=== PATIENT | female | born 1945 | race Caucasian/White ===

== ENCOUNTER 2023-12-29 08:45 | Emergency (ER) | payer OTHER, SELFPAY ==
[2023-12-29 08:47] VITALS: BP 141/75
--- NOTE | 2023-12-29 09:09 | ED.GENMED ---
History of Present Illness
General
Chief Complaint: Post Operative Problem(s)
Source: patient
Exam Limitations: none
Time Seen by Provider: 12/29/23 09:06
Nursing documentation reviewed up to this point in time: agreed with
History of Present Illness
History of Present Illness:
78 yo female w no clinically significant pmhx presents one day post op right foot bunionectomy and straightening of toes right foot by Dr. Faye. She is here for bleeding through her dressings. Not on thinners. States pain is 'not bad.'
Past History
Past History
ED Past Medical History: Other (OA)
ED Past Surgical History: None, Cardiac (PFO surgery) and Orthopedic
Social History
Tobacco: Non-smoker
Alcohol: None
Drug: None
Living: with family
Family History
Family History: Negative Diabetes, Hypertension, Early CAD, Asthma or Cancer
Review of Systems
Review of Systems
Allergies reviewed?: Yes
All Other Systems: ROS reviewed and negative except as documented in HPI and ROS
Constitutional: Denies fever
Musculoskeletal: Reports other (bleeding through dressing right foot. Pins intact.)
Phy Exam
Physical Exam
Physical Exam:
PHYSICAL EXAMINATION:
General: no apparent distress, not acutely ill
Neuro: alert and oriented.
Psychiatric: well kept. interactive and cooperative
Musculoskeletal: Moves with ease
Skin: Warm, pink. Dressings removed right foot: 5 pins intact, sutures intact, minimal no active bleeding. Gelfoam applied to a small clot base of 2nd toe most likely site of bleeding. Vaseline gauze, sterile gauze and Kerlix
dressing, nae wrap applied (just like it was wrapped on arrival). Pt cast shoe replaced.
Course
Vital Signs
Initial and Last Documented VS:
Initial Vital Signs
Temp Pulse Resp BP Pulse Ox
98.3 F 81 18 141/75 98
12/29/23 08:47 12/29/23 08:47 12/29/23 08:47 12/29/23 08:47 12/29/23 08:47
Last Documented Vital Signs
Temp Pulse Resp BP Pulse Ox
98.3 F 81 18 141/75 98
12/29/23 08:47 12/29/23 08:47 12/29/23 08:47 12/29/23 08:47 12/29/23 08:47
MDM/Problems Addressed
Differential Diagnosis Includes:
Post op bleeding
MDM/Problems Addressed:
78 yo female w no clinically significant pmhx presents one day post op right foot bunionectomy and straightening of toes right foot by Dr. Faye. She is here for bleeding through her dressings. Not on thinners. States pain is 'not bad.'
Dressing removed, no significant bleeding, area cleansed w NSS, dressing reapplied. No further bleeding
*Critical Care Note
Total Time (30-74mins, 75-104mins- exclusive of procedures): Not Applicable
ED Attending Note
-
Portions of this chart may have been created with voice recognition software.� Occasional wrong word or��sound alike� substitutions may have occurred due to the inherent limitations of voice recognition software.
Discharge Plan
Departure
Patient Disposition: Home (Routine Discharge)
Date of Disposition: 12/29/23
Time of Disposition: 09:20
Patient with high blood pressure during this ER visit?: No
Condition: Good
Discharge Problem:
Post-op bleeding, Dressing change
Instructions: Wound Care (DC)
Prescriptions:
No Action
alendronate 70 MG tablet
70 mg PO WE
prasterone (dhea) 25 MG capsule
25 mg PO DAILY
cholecalciferol (vitamin D3) 2,000 UNITS tablet
5,000 units PO DAILY
multivitamin with folic acid [Tab-A-Sen] 1 TABLET tablet
1 tab PO DAILY
Lactobacillus acidophilus [Probiotic] 1 EACH capsule
1 ea PO DAILY
tocilizumab [Actemra] 162 MG/0.9 ML syringe
162 mg SQ WE Qty: 0 0RF
Rx Instructions:
Resume 2 weeks post-op per edger machine operator recs.
acetaminophen [Tylenol Arthritis] 650 MG tablet extended release
650 mg PO TID
Referrals:
Minh Faye MD [Active] - Keep scheduled appt
Activity Restrictions/Additional Instructions:
As we discussed, continue Dr. Cisse's instructions.
Interventions
Interventions:
*Risk Screen - Suicide Last Done: 12/29/23 08:47
*General Assessment Last Done: 12/29/23 08:47
*Neglect/Abuse Screening Last Done: 12/29/23 08:47
*ED COVID-19 Vaccine History Last Done: 12/29/23 08:47
*Nursing Disposition Last Done: 12/29/23 09:38
ED-Skin Assessment Last Done: 12/29/23 09:10
Discharge Date and Time
Discharge Date/Time: 12/29/23 09:39
Print Language: TURKISH
== END 2023-12-29 09:39 | disposition home or self-care (01) ==
LOC: EMR 08:45
PROVIDERS: EMERGENCY PHYSICIAN Student in an Organized Health Care Education/Training Program; FAMILY PHYSICIAN Family Medicine
DX: L76.22 Postprocedural hemorrhage of skin and subcutaneous tissue following other procedure (principal); Y83.8 Other surgical procedures as the cause of abnormal reaction of the patient, or of later complication, without mention of misadventure at the time of the procedure; Z48.01 Encounter for change or removal of surgical wound dressing
CPT/HCPCS: 99281

== ENCOUNTER 2024-12-30 00:38 | Emergency (ER) | payer OTHER, SELFPAY ==
[2024-12-30 00:45] VITALS: BP 174/102
--- NOTE | 2024-12-30 03:08 | ED.GENMED ---
History of Present Illness
General
Chief Complaint: Generalized Pain
Source: patient
Exam Limitations: none
Time Seen by Provider: 12/30/24 03:07
Nursing documentation reviewed up to this point in time: agreed with
History of Present Illness
History of Present Illness:
Note:
CHIEF COMPLAINT(S)
Diffuse muscle pain.
HISTORY OF PRESENT ILLNESS
The patient is a 78-year-old female with a history of rheumatoid arthritis, fibromyalgia, anemia, who presents with diffuse muscle pain. The pain is primarily in the muscles and joints, with the exception of the abdomen. This discomfort is
exacerbated which walking and any movement, which she describes as significantly intensifying the muscle discomfort. The patient has not experienced any fevers or vomiting. She has a known history of rheumatoid arthritis and reports that her
inflammation levels have generally been normal in recent evaluations. The current pain episode is not new but has worsened compared to prior occurrences. The patient has not been on biologic treatments or oral medications specifically for rheumatoid
arthritis. She has had past surgical interventions, including a joint replacement. 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
The patient has attempted to manage the pain with Tylenol, which has provided minimal relief. She has also tried ibuprofen. There is a concern about osteoporosis, and she has expressed caution with specific muscle relaxants due to side effects like
drowsiness. She is requesting Medrol dose back. She feels the pain 'all over' but today sees to be worse in left lower back and right shoulder. She denies saddle paresthesias, urinary incontinence.
PLAN
1. Initiate blood work to rule out rhabdomyolysis or other muscle breakdown conditions.
2. Start a course of Medrol (methylprednisolone) for anti-inflammatory effects.
3. Discuss the option of using a Toradol (ketorolac) injection as a potent anti-inflammatory measure.
4. Apply Lidocaine patches to the most painful areas, such as the left shoulder and right back area.
5. Consider initiating muscle relaxants if needed, with caution regarding potential side effects, particularly in the context of the patients age and sensitivity to medications.
6. Evaluate the effectiveness of current treatments and adjust the plan as necessary.
DIFFERENTIAL DIAGNOSIS
The Differential Diagnosis includes, in no particular order and is not limited to:
1. Rheumatoid arthritis exacerbation
2. Polymyalgia rheumatica
3. Fibromyalgia
4. Rhabdomyolysis
5. Spondyloarthritis
6. Osteoporosis-related pain
7. Muscle strain
8. Drug-induced myopathy
9. Chronic pain syndrome
10. Degenerative joint disease
PHYSICAL EXAM
General: Patient is well appearing and in no acute distress; non-toxic
Skin: Warm and dry, no rashes or lesions
Head: Normocephalic, atraumatic
Eyes: Sclera non-icteric. EOMs intact.
Cardiac: Regular rate
Peripheral Vascular: No lower extremity swelling or edema, no tenderness of the bilateral lower extremities
Pulm: Normal respiratory effort, no wheezes, rales, or rhonchi
Musculoskeletal: No midline spinal tenderness. Tenderness to palpation of the right posterior shoulder and left parathoracic region. No tenderness of the upper extremities. Normal, steady gait.
Neuro: CN II-XII intact, no focal neurologic deficits. 5/5 strength in bilateral upper and lower extremities.
Psychiatric: Appropriate mood and affect.
CHART REVIEW
reviewed chart from 12/29/23 patient seen for dressing change
reviewed discharge summary from 11/14/20 patient seen for total knee replacement
UPDATE
Patient notes minimal improvement with Toradol and lidocaine patches
Patient declined Valium
MDM/DISPOSITION
This is a 79 year-old female with a past medical history of rheumatoid arthritis and fibromyalgia who presents an emergency with concerns of diffuse spotty aches. She reports that this pain is typical of her rheumatoid arthritis pain and she falls
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 She has no fevers or chills. No red flag low back symptoms . She's been taking Tylenol at home without relief. She was given Tylenol , Toradol, and liking patches in the ER with minimal if any relief. Patient reports that she
cannot walk because of the severe pain however she was seen by nursing staff to be walking comfortably.
In review of her labs, she does have a leukocytosis which I think is reactive secondary to acute flair of her chronic inflammatory condition. Her anemia is stable. Her other bloodwork is unremarkable and her CK is not concerning. Suspect acute RA
flare. Patient that Medrol has worked well for her in the past. Will send for pharmacy . Discussed strict return precautions. Patient stable for outpatient follow up. Discussed potential l evaluation in the future as an outpatient by a pain
management doctor.
Past History
Past History
ED Past Medical History: Other (OA)
ED Past Surgical History: None, Cardiac (PFO surgery) and Orthopedic
Social History
Tobacco: Non-smoker
Alcohol: None
Drug: None
Living: with family
Family History
Family History: Negative Diabetes, Hypertension, Early CAD, Asthma or Cancer
Phy Exam
Physical Exam
Physical Exam:
see hpi
Course
Orders/Labs/Results
Orders:
Orders
12/30/24 03:21
Acetaminophen [Tylenol] 1,000 mg PO NOW STA
Ketorolac [Toradol] 15 mg IM NOW STA
Lidocaine [Lidocaine 4% Patch] 2 patch TOPICAL DAILY ONE
Apply Lidocaine patch(s) to:: left shoulder, right low back
12/30/24 03:34
CPK [Creatine Phosphokinase] Urgent
Complete Blood Count/With Diff Urgent
Comprehensive Metabolic Panel Urgent
12/30/24 04:29
Vital Signs- Treatment ONCE
Frequency: Once
Abnormal Lab Results
12/30/24
03:34
WBC 16.6 H 10^3/uL
(4.8-10.8)
Hgb 10.8 L g/dL
(12.0-16.0)
Hct 33.5 L %
(37.0-47.0)
MCV 68.4 L fL
(81.0-99.0)
MCH 22.0 L pg
(27.0-31.0)
MCHC 32.2 L g/dL
(33.0-37.0)
RDW 18.5 H %
(11.5-14.5)
MPV 10.6 H fL
(7.4-10.4)
Abs Immat Gran (auto) 0.1 H 10^3/uL
(0-0.05)
Absolute Neuts (auto) 15.7 H 10^3/uL
(1.4-6.5)
Absolute Lymphs (auto) 0.4 L 10^3/uL
(1.2-3.4)
Neutrophils % 94.6 H %
(42.2-75.2)
Lymphocytes % 2.3 L %
(20.5-51.1)
Chloride 110 H mmol/L
(98-107)
Creatine Kinase 25 L U/L
(30-135)
Total Protein 6.2 L g/dl
(6.3-8.2)
12/30/24 03:34
12/30/24 03:34
Vital Signs
Initial and Last Documented VS:
Initial Vital Signs
Temp Pulse Resp BP Pulse Ox
97.7 F 83 18 174/102 97
12/30/24 00:45 12/30/24 00:45 12/30/24 00:45 12/30/24 00:45 12/30/24 00:45
Last Documented Vital Signs
Temp Pulse Resp BP Pulse Ox
97.5 F 77 16 148/85 99
12/30/24 04:33 12/30/24 04:33 12/30/24 04:33 12/30/24 04:33 12/30/24 04:33
*Pulse Oximetry
SaO2: 97
Oxygen Mode of Delivery: Room air
Patient hypoxic: no
*Critical Care Note
Total Time (30-74mins, 75-104mins- exclusive of procedures): Not Applicable
ED Attending Note
-
Portions of this chart may have been created with voice recognition software.� Occasional wrong word or��sound alike� substitutions may have occurred due to the inherent limitations of voice recognition software.
Discharge Plan
Departure
Patient Disposition: Home (Routine Discharge)
Date of Disposition: 12/30/24
Time of Disposition: 04:57
Patient with high blood pressure during this ER visit?: Yes
Condition: Good
Discharge Problem:
Rheumatoid arthritis flare
Instructions: Rheumatoid arthritis, Fibromyalgia, BLOOD PRESSURE
Prescriptions:
New
methylprednisolone [Medrol (Jacoby)] 4 mg tablets,dose pack
See Rx Instructions .ROUTE .COMPLEX Qty: 21 0RF
Rx Instructions:
orally per package directions
oxycodone-acetaminophen [Percocet] 2.5-325 mg tablet
1 tab PO Q6H PRN (Reason: Pain) Qty: 6 0RF
No Action
alendronate 70 MG tablet
70 mg PO WE
prasterone (DHEA) 25 MG capsule
25 mg PO DAILY
cholecalciferol (vitamin D3) 2,000 UNITS tablet
5,000 units PO DAILY
multivitamin with folic acid [Tab-A-Sen] 1 TABLET tablet
1 tab PO DAILY
Lactobacillus acidophilus [Probiotic] 1 EACH capsule
1 ea PO DAILY
tocilizumab [Actemra] 162 MG/0.9 ML syringe
162 mg SQ WE Qty: 0 0RF
Rx Instructions:
Resume 2 weeks post-op per grey iron molder recs.
acetaminophen [Tylenol Arthritis] 650 MG tablet extended release
650 mg PO TID
Referrals:
UNKNOWN - PT DOES,NOT KNOW [Family Provider]
Activity Restrictions/Additional Instructions:
Medrol Dosepak is been sent to your pharmacy. Please follow package instructions for dosing. You can also take a Percocet as needed for breakthrough pain. You can take 1 tablet every 6 hours as needed.
Please call your grey iron molder tomorrow for follow-up appointment.
PLEASE RETURN THE EMERGENCY DEPARTMENT SHOULD YOU DEVELOP ANY ACUTE WORSENING OF YOUR SYMPTOMS, INABILITY TO AMBULATE, FALLS, FEVERS OR CHILLS, CHEST OR SHORTNESS OF BREATH, OR ANY OTHER SIGNS OR SYMPTOMS WORRISOME TO YOU.
Interventions
Interventions:
*Risk Screen - Suicide Last Done: 12/30/24 00:45
*General Assessment Last Done: 12/30/24 04:43
*Neglect/Abuse Screening Last Done: 12/30/24 00:45
*ED- Fall Risk Assessment Last Done: 12/30/24 04:43
*ED COVID-19 Vaccine History Last Done: 12/30/24 04:43
*Nursing Disposition Last Done: 12/30/24 05:25
Discharge Date and Time
Discharge Date/Time: 12/30/24 05:26
Print Language: IRISH
[2024-12-30] MEDS: TYLENOL 1000 MG PO (03:38)
[2024-12-30] MEDS: LIDOCAINE 4% PATCH 2 PATCH TOPICAL (03:38)
[2024-12-30] MEDS: TORADOL 15 MG IM (03:39)
[2024-12-30 03:55] LABS: Hematocrit 33.5 % (37.0-47.0); Hemoglobin 10.8 g/dL (12.0-16.0); Mean Corp Hgb Conc. 32.2 g/dL (33.0-37.0); Mean Corpuscular Volume 68.4 fL (81.0-99.0); Nucleated Red Blood Cells % 0 %; Platelet Count 149 10^3/uL (130-400); Red Cell Dist. Width 18.5 % (11.5-14.5)
[2024-12-30 04:07] LABS: ALT (SGPT) 16 U/L (0-35); AST (SGOT) 25 U/L (14-36); Albumin 4.0 g/dl (3.5-5.0); Alkaline Phosphatase 49 U/L (38-126); Blood Urea Nitrogen 14 mg/dl (7-17); Calcium 10.1 mg/dl (8.4-10.2); Carbon Dioxide 24 mmol/L (22-30); Chloride 110 mmol/L (98-107); Glucose 93 mg/dl (70-99); Potassium 3.9 mmol/L (3.5-5.1); Sodium 140 mmol/L (135-145); Total Protein 6.2 g/dl (6.3-8.2); eGFR > 60.00
[2024-12-30 04:33] VITALS: BP 148/85
== END 2024-12-30 05:26 | disposition home or self-care (01) ==
LOC: EMR 00:38
PROVIDERS: Physician Assistant; EMERGENCY PHYSICIAN Emergency Medicine
DX: M06.9 Rheumatoid arthritis, unspecified (principal); M79.7 Fibromyalgia; D64.9 Anemia, unspecified; Z82.49 Family history of ischemic heart disease and other diseases of the circulatory system
CPT/HCPCS: 99282; 96372; 80053; 82550; 85025